=== PATIENT | male | born 1990 | race Two or more races ===

== ENCOUNTER 2023-11-21 11:15 | Outpatient (REF) | payer MEDICAID, OTHER, SELFPAY ==
[2023-11-21 12:26] LABS: Alanine Aminotransferase 173 U/L (0-40); Albumin Level 4.3 g/dL (3.5-5.0); Alkaline Phosphatase 62 U/L (39-117); Anion Gap 9 (12-20); Aspartate Amino Transferase 60 U/L (5-37); Bilirubin Total 0.7 mg/dL (0.0-1.0); Blood Urea Nitrogen 15 mg/dL (9-16); Calcium 9.7 mg/dL (8.4-10.2); Carbon Dioxide 29 mmol/L (22-29); Chloride 107 mmol/L (96-108); Cholesterol 179 mg/dL (<200); Estimated Glomerular Filt Rate > 60; Glucose Random 91 mg/dL (60-115); HDL Cholesterol 46 mg/dL (>40); LDL Cholesterol Calculated 104 mg/dL (<100); Potassium 4.4 mmol/L (3.3-5.1); Sodium 141 mmol/L (135-145); Total Protein 8.2 g/dL (6.5-8.0); Triglycerides 147 mg/dL (<150)
[2023-11-21 12:37] LABS: HBS Num1 0.35 mIU/mL (0-7.99); ~HepC Num1 0.17 S/CO (0.00-0.79); ~Hepatitis B Surface Antibody NONREACTIVE (Nonreactive); ~Hepatitis C Antibody Nonreactive (Nonreactive)
[2023-11-21 12:39] LABS: Hepatitis A Antibody IgM 0.22 Index (0-0.79)
[2023-11-21 12:43] LABS: Thyroid Stimulating Hormone 0.61 uIU/mL (0.32-4.0)
[2023-11-21 12:45] LABS: Appearance Urine Clear; Color Urine Yellow; Glucose Urine UA Negative (Negative); Leukocyte Esterase Urine Negative (Negative); Nitrite Urine Negative (Negative); Specific Gravity - Urine 1.015 (1.005-1.025); Urine Blood Negative (Negative); Urine Ketones Negative (Negative); Urine Protein Negative (Neg-Trace)
[2023-11-21 12:52] LABS: Bacteria Urine None Seen (None Seen); Hyaline Casts Urine 0-2 /LPF (0-2); RBC Urine 0-2 /HPF (0-2); Squamous Epithelial Cell Urine 0-2 /HPF (0-2); WBC Urine 0-5 /HPF (0-5)
[2023-11-21 14:41] LABS: CT PCR NOT DETECTED (Not Detect.); NG PCR NOT DETECTED (Not Detect.)
[2023-11-23 19:39] LABS: TS Negative Control Passed; TS Panel A 1; TS Panel B 0; TS Positive Control Passed; TSpotTB Negative (Negative)
[2023-11-24 22:48] LABS: RPR Rapid Plasma Reagin NON-REACTIVE (NON-REACTIVE)
[2023-11-25 01:49] LABS: Rubella IgG Antibody >33.00 Index
[2023-11-25 16:43] LABS: HIV RNA PCR Qn Copies Not Detected Copies/mL; HIV RNA PCR Qn Log Copies Not Detected Log cps/mL
== END 2023-11-21 11:16 | disposition home or self-care (01) ==
LOC: HO.LAB 11:15
PROVIDERS: PCP Nurse Practitioner; Visit Provider Nurse Practitioner
DX: Z11.3 Encounter for screening for infections with a predominantly sexual mode of transmission (principal); Z01.84 Encounter for antibody response examination; Z11.1 Encounter for screening for respiratory tuberculosis; R03.0 Elevated blood-pressure reading, without diagnosis of hypertension; Z13.220 Encounter for screening for lipoid disorders
CPT/HCPCS: 80053; 80061; 81001; 84443; 86481; 86592; 86706; 86735; 86762; 86765; 86803; 87491; 87536; 87591; 87900

== ENCOUNTER 2024-07-30 22:26 | Emergency (ER) | payer MEDICAID, SELFPAY ==
[2024-07-30 22:45] VITALS: BP 143/94; PULSE 64; RESP 18; TEMP 36.7; O2SAT 98; BMI 24.4
[2024-07-31] MEDS: Lidocaine HCl 1 % MPF 5 ML VIAL INFILTRATI (01:23)
--- NOTE | 2024-07-31 01:23 | PC.NURSE ---
Provider to [facility] for lac repair.
--- NOTE | 2024-07-31 01:29 | ED_ITS ---
HPI - Wound/Laceration General Chief Complaint: Wound/Laceration Stated Complaint: left hand 3rd finger laceration Time Seen by Provider: 07/31/24 01:04 Source: patient Mode of arrival: ambulatory Limitations: no limitations History of Present Illness ED Provider: MAU COLBERT PA-C HPI narrative: 33-year-old male presents to the ED today for evaluation of laceration to left 3rd digit sustained prior to arrival. He reports attempting to put a dirty plate in the [employer] when the plate broke, causing a laceration to his left 3rd digit. Reports immediate bleeding from the area which is controlled on arrival to ED today. Denies any retained plate in the laceration. Denies any difficulty with range of motion of left 3rd digit. States his tetanus is up-to-date. Denies any numbness/tingling/weakness of the digit. He is not on anticoagulation. Denies any other concerns. Related Data Allergies Allergy/AdvReac Type Severity Reaction Status Date / Time No Known Allergies Allergy Verified 07/30/24 22:46 Review of Systems Review of Systems: Yes all other systems are reviewed and are negative PMFSH Past Medical History Attestation statement: The following information was validated with the patient. Source: old records reviewed and nursing notes reviewed Physical Exam Vital Signs: Vital Signs: Last Vital Signs Temp 98.0 F 07/30/24 22:45 Pulse 64 07/30/24 22:45 Resp 18 07/30/24 22:45 BP 143/94 H 07/30/24 22:45 Pulse Ox 98 07/30/24 22:45 O2 Del Method Room Air 07/30/24 22:45 BMI result Body Mass Index 24.4 Hypertensive, vitals otherwise WNL General: Well appearing, in no acute distress. Skin: +see below Head: Normocephalic, atraumatic. EENT: Hearing is intact b/l. Conjunctiva clear. PERRLA. EOM intact. Moist mucous membranes.? Neck: Supple without LAD Lungs: Normal respiratory effort without accessory muscle use Ext: + 1 cm superficial linear laceration noted to palmar aspect of mid left 3rd digit. Bleeding controlled. Full ROM intact to left 3rd digit at MCP, PIP and DIP. finger strength intact. deep structures intact. no retained FB. Neuro: AOx3. Normal speech. Ambulating with steady gait Course Course Course Narrative: 0133 -- simple laceration noted to left 3rd digit. Digital block performed. Laceration repaired with 2 sutures by my PA student Devan with consent from patient. Bleeding controlled. Patient states his tetanus is up to date. No indication for imaging. No antibiotics warranted. Advised patient to return to the ED in 7-10 days for suture removal. I do not have concern for ligament or tendon injury at this time. Patient has remained stable throughout ED visit today. Discussed worrisome signs and symptoms and when to return to the ED. All questions answered at this time. Patient is agreeable with disposition and stable for discharge. Medications Administered Discontinued Medications Generic Name Dose Route Start Last Admin Trade Name Freq PRN Reason Stop Dose Admin Lidocaine HCl 5 ml 07/31/24 01:07 07/31/24 01:23 Lidocaine Hcl 1 % Mpf 5 Ml Vial INFILTRATI 07/31/24 01:08 5 ml ONCE ONE Administration Medical Decision Making Medical Decision Making [facility] Narrative: 33-year-old male presents to the ED today for evaluation of laceration to left 3rd digit sustained prior to arrival. He is hypertensive, vitals otherwise WNL. Well-appearing. In no acute distress. on exam of LUE, 1 cm superficial linear laceration noted to palmar aspect of mid left 3rd digit. Bleeding controlled. Full ROM intact to left 3rd digit at MCP, PIP and DIP. finger strength intact. deep structures intact. no retained FB. Differential diagnosis includes abrasion, laceration. Unlikely ligament/tendon injury, retained foreign body or fracture. Plan laceration repair and disposition. Differential Diagnosis Differential Diagnoses: The differential diagnosis associated with the presentation includes as above. Admission/Observation not indicated. Social Determinants Patient?s care significantly limited by Social Determinants of Health including: Other Social Determinant of Health Procedures Laceration Laceration 1: Site: hand (third digit) Side (If applicable): left Size (cm): 1 Description: linear Depth: simple, single layer Local Anesthetic: lidocaine 1% Amount of anesthesia used (mL): 5 Pre-repair: wound explored, irrigated extensively and deep structures intact Skin layer closed with: nylon Size (cm): 3-0 Number of sutures: 2 Technique: simple, interrupted Nerve Block Nerve Block 1: Time out performed: Yes Local Anesthetic: lidocaine 1% Amount of anesthesia used (mL): 5 Side: left Nerve Blocks: digital (left 3rd) Procedure Successful: Yes Patient Tolerated Procedure: well Complications: none Critical Care Time Critical Care Time Critical Care Time: No Discharge Plan Discharge Clinical Impression: Laceration Patient Disposition: Home, Self-Care Instructions: Care For Your Stitches (ED) Additional Instructions: You have been evaluated in the Emergency Department today for a laceration to your left middle finger. Your laceration was repaired in the ED with 2 sutures.? Please keep the area surrounding the laceration clean and dry. Do not get the area wet for 24 hours. After 24 hours, you may clean the area with a nonscented soap and pat to dry. Please keep the area out of the sunlight for the next 6 months to help prevent scarring.? If you develop redness or swelling at the site of your laceration or note any discharge/ fluid coming from the laceration, please come back to the ER for a wound check. I recommend you take 600mg ibuprofen every 6 hours or tylenol 650mg every 6 hours as needed for pain. If needed, you can alternate these medications so that you take one medication every 3 hours. For example, at noon take ibuprofen, then at 3pm take tylenol, then at 6pm take ibuprofen. Please follow up with your primary care physician in 7-10 days for suture removal. You may also return to the ER or another urgent care facility for this service. Return to the Emergency Department if you experience discharge from your laceration, redness around your laceration, warmth around your laceration, fever, vomiting, numbness, tingling, or any other concerning symptoms. In the case of an emergency call 911. Referrals: Physician,Unknown J [Primary Care Provider] - Stand Alone Forms: Work/School Release Print Language: [place]ian
[2024-07-31 02:02] VITALS: BP 143/94; PULSE 64; RESP 18; TEMP 36.7; O2SAT 98
== END 2024-07-31 02:02 | disposition home or self-care (01) ==
PROVIDERS: Emergency Provider Emergency Medicine
DX: S61.213A Laceration without foreign body of left middle finger without damage to nail, initial encounter (principal); W25.XXXA Contact with sharp glass, initial encounter; Y93.G1 Activity, food preparation and clean up; Y92.030 Kitchen in apartment as the place of occurrence of the external cause; Y99.9 Unspecified external cause status
CPT/HCPCS: 12001; 99284; J2003